=== PATIENT | female | born 1975 | race Caucasian/White ===

== ENCOUNTER → 2016-04-30 | Outpatient (CLI) | payer OTHER, SELFPAY ==
[~2016-04-30] MED LIST: ACET PO; ACETGRA; BACL10TA2 PO; CYMB60CA3 PO; FLEXERIL PO; GABA300C2 PO; OXYC1CON PO; PERC7.5T12 PO; ROBA750T OR; SOMA350T PO; TRAM50TA2 PO; ULTR50TA PO; VICO5TAB OR; VICO5TAB PO; combination cream PO; cymbalta PO; flexeril PO
--- NOTE | 2016-05-07 23:47 | ECWPNPC ---
PATIENT NAME: RONY BOYLE : 1975 GENDER: FEMALE VISIT DATE: 04/30/2016 DISCHARGE DATE: 04/30/16 1551 VISIT LOCKED DATE TIME: PHYSICIAN: ALISSA VILLANUEVA RESOURCE: ALISSA VILLANUEVA REASON FOR APPOINTMENT 1. BACK/NECK HISTORY OF PRESENT ILLNESS HISTORY OF PRESENT ILLNESS: HERE FOR F/U AND MANAGEMENT OF CHRONIC LBP.HX OF LUMBAR SURGERY OCTOBER 2015.HAS HAD INCREASE IN PAIN LATELY DUE TO LONG TRAVEL AND SITTING.RATING PAIN VAS 8/10.LAST VISIT WAS 04-23-16.AT THAT VISIT PATIENT DID NOT BRING IN OXYCODONE 15MG TAB PER CLINIC POLICY.STATES SHE FORGOT IT AT HOME.STATES SHE HAD A DOSE THIS AM.STATES SHE HAS TO BE OUT OF TOWN FOR FAMILY MEDICAL EMERGENCY.STATES SHE HAS 5 TABLETS AT HOME. INFORMED HER THAT SHE IS NOT DUE UNTIL .STATES SHE WAS TOLD BY DR. BLANCHARD THAT SHE HAD TO CUT DOWN TO ONE PER DAY LAST 5 DAYS OF 30 DAY SUPPLY SO SHE WOULD NOT RUN OUT SO SHE SHOULD BE OK.I TOLD HER THAT SHE WAS GIVEN INSTRUCTION FROM BOTH MYSELF AND DR. BLANCHARD AT HER 04-01-16 VISIT THAT 100 TABLETS WOULD BE A THIRTY DAY SUPPLY AND SHE WOULD HAVE TO USE IT SPARINGLY FOR SEVERE PAIN EPIODES (IE SOME DAYS 2 TABLETS SOMEDAYS 3 TABLETS SOMEDAYS NONE )URINE TOX. OBTAINED AT 04-23-16 VISIT REVIEWED SHOWING MULTIPLE DESCREPENCIES.FIRST THERE WAS NO OXYCODONE IN HER URINE AND A LARGE QUANITY >100,000MEQ TRAMADOL.WHEN DR. BLANCHARD QUESTIONED HER ON USE OF TRAMADOL SHE STATES THAT SHE STARTED TAKING TRAMADOL APROXIMATLEY ONE WEEK AGO BUT ONLY A FEW TABLETS PER DAY.ISTOP REVIEWED DOES NOT SHOW ANY EVIDENCE OF TRAMADOL PRESCRIBED.WHEN ASKED WHERE SHE GOT TRAMADOL SHE STATES IT WAS AN OLD PRESCRIPTION PRESCRIBED BY JORGITO MEDRANO A PROVIDER HERE.SHE WAS A PATIENT OF [facility] JOEL 2 YEARS AGO AND WAS RECIEVING TRAMADOL. FALL RISK SCREENING: SCREENING :NO FALLS IN THE PAST YEAR CURRENT MEDICATIONS TAKING TYLENOL EX ST ARTHRITIS PAIN 500 MG TABLET 1 TABLET NEEDED ORALLY EVERY 6 HRS TAKING CYMBALTA 60 MG CAPSULE DELAYED RELEASE PARTICLES 1 CAPSULE ORALLY ONCE A DAY FOR PAIN TAKING TIZANIDINE HCL 4 MG TABLET 1 TABLET NEEDED ORALLY EVERY 6 HRS AT NIGHT FOR SPASMS AND PAIN MDD2 TAKING CYMBALTA 30 MG CAPSULE DELAYED RELEASE PARTICLES 1 CAPSULE ORALLY IN AM DAILY TAKING OXYCODONE HCL 15 MG TABLET 1 TABLET NEEDED ORALLY EVERY 6 HRS PRN MDD4 NOT-TAKING IBUPROFEN 800 MG TABLET 1 TAB ORALLY WITH FOOD EVERY 6 HRS PRN FOR PAIN MDD3 NOT-TAKING OXYCODONE HCL 10 MG TABLET 1 TABLET NEEDED ORALLY EVERY 8 HRS MDD2 NOT-TAKING MOTRIN 800 MG TABLET ORALLY EVERY 6 HRS NOT-TAKING KETOROLAC TROMETHAMINE 10 MG TABLET 1 TABLET NEEDED ORALLY WITH FOOD EVERY 8 HRS MDD2 NOT-TAKING MOBIC 15 MG TABLET 1 TABLET ORALLY ONCE A DAY MEDICATION LIST REVIEWED AND RECONCILED WITH THE PATIENT PAST MEDICAL HISTORY DDD, LUMBAR, CHR BACK PAIN NECK PAIN 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 SOCIAL HISTORY TOBACCO USE ARE YOU A:CURRENT SMOKER PATIENT COUNSELED ON THE DANGERS OF TOBACCO USE AND URGED TO QUIT:04/30/2016 ARE YOU INTERESTED IN QUITTING?READY TO QUIT COUNSELED THE PATIENT ON TOBACCO USE, CESSATION [id number]/05/2017 LEARNING BARRIERS / SPECIAL NEEDS ORIENTED TO PLAN OF CARE:PATIENT PAIN MANAGEMENTPATIENT NEW PATIENT PAIN DIARY TODAY'S VISITNOTES FROM 0-10, WHAT LEVEL IS YOUR PAIN TODAY?0 PAIN CLINIC PFS, CLERGY, PUBLIC HEALTH REFERRALS PFS REFERRAL NEEDED?NO CLERGY REFERRAL NEEDED?NO PUBLIC HEALTH REFERRAL NEEDED?NO WAS THE PROVIDER NOTIFIED OF ANY PERTINENT INFO?NO PFS REFERRAL NEEDED?NO CLERGY REFERRAL NEEDED?NO PUBLIC HEALTH REFERRAL NEEDED?NO WAS THE PROVIDER NOTIFIED OF ANY PERTINENT INFO?NO PFS REFERRAL NEEDED?NO CLERGY REFERRAL NEEDED?NO PUBLIC HEALTH REFERRAL NEEDED?NO WAS THE PROVIDER NOTIFIED OF ANY PERTINENT INFO?NO REVIEW OF SYSTEMS CONSTITUTIONAL: ANY CHANGE IN YOUR MEDICAL CONDITION? NO . CHILLS NO . FEVER NO . INFECTION: DO YOU HAVE NEW INFECTIONS? NO . DO YOU HAVE HISTORY OF MRSA? NO . MUSCULOSKELETAL: ANY NEW PATTERNS OF PAIN OR NUMBNESS? NO . GASTROENTEROLOGY: ANY NEW CHANGE IN BOWEL CONTROL? NO . GENITOURINARY: ANY NEW CHANGE IN BLADDER CONTROL? NO . IS THERE A CHANCE YOU COULD BE ? NO . HEMATOLOGY/LYMPH: DO YOU TAKE ANY BLOOD THINNERS? (FOR EXAMPLE- COUMADIN, PLAVIX, AGGRENOX, PLATEL, PRADAXA, OR XARELTO) NO . WHEN WAS YOUR LAST DOSE? DATE: TIME: . NEUROLOGY: HAVE YOU FALLEN IN THE PAST 6 MONTHS? NO . ANY NEW EXTREMITY NUMBNESS OR WEAKNESS? NO . CARDIOLOGY: DO YOU HAVE A PACEMAKER OR DEFIBRILLATOR? NO . RESPIRATORY: HAVE YOU BEEN SICK IN THE PAST WEEK? NO . FEVER NO . FLU LIKE SYMPTOMS? NO . COUGH NO . INTEGUMENTARY: DO YOU HAVE ANY RASHES OR OPEN SORES? NO . ALLERGIC/IMMUNO: ARE YOU ALLERGIC TO SHELLFISH OR IV DYE? NO . ANY NEW ALLERGIES? NO . PSYCHIATRIC: DO YOU HAVE THOUGHTS OF HURTING YOURSELF OR SOMEONE ELSE? NO . ARE YOU ABUSED, NEGLECTED, OR IN AN UNSAFE ENVIRONMENT? NO . ENDOCRINOLOGY: ARE YOU DIABETIC? NO . OTHER: DO YOU NEED ANY PRESCRIPTIONS? YES . IF YES, PLEASE LIST: ____OXYCODONE 15 MG . ANY NEW PROBLEMS WITH YOUR MEDICATIONS? NO . WHEN DID YOU LAST EAT? ____ . WHEN DID YOU LAST DRINK? ____ . WHAT DID YOU LAST DRINK? ____ . NAME OF PERSON DRIVING YOU HOME? ____ . DO YOU HAVE ANY OTHER QUESTIONS OR CONCERNS NO . REVIEWED BY: PROVIDER: ALISSA WYNNE . VITAL SIGNS WT 220 LBS, HT 68 IN, BMI 33.45 INDEX, BP 142/99 MM HG, HR 92 /MIN, RR 16 /MIN, TEMP 98.9 F, OXYGEN SAT % 94%, NA INITIALS SC 13:33, REVIEWED BY: VD. EXAMINATION GENERAL EXAMINATION: LUNGS:LUNG SOUNDS ARE CLEAR. HEART:HEART RATE REGULAR. MUSCULOSKELETAL:*, MUSCLE STRENGTH TESTING 5/5 BILATERAL, PALPATION: POSITIVE FOR PAIN OVER L/S SPINE. POSITIVE FOR PAIN OVER L/S PARSPINALS. DIAGNOSTIC: . ASSESSMENTS POSTLAMINECTOMY SYNDROME, NOT ELSEWHERE CLASSIFIED - M96.1 (PRIMARY) CERVICAL DISC DISORDER WITH RADICULOPATHY, HIGH CERVICAL REGION - M50.11 MID-CERVICAL DISC DISORDER, UNSPECIFIED - M50.120 CERVICAL DISC DISORDER WITH RADICULOPATHY, CERVICOTHORACIC REGION - M50.13 TREATMENT POSTLAMINECTOMY SYNDROME, NOT ELSEWHERE CLASSIFIED CONTINUE CYMBALTA CAPSULE DELAYED RELEASE PARTICLES, 60 MG, 1 CAPSULE, ORALLY, ONCE A DAY FOR PAIN CONTINUE TIZANIDINE HCL TABLET, 4 MG, 1 TABLET NEEDED, ORALLY, EVERY 6 HRS AT NIGHT FOR SPASMS AND PAIN MDD2 CONTINUE CYMBALTA CAPSULE DELAYED RELEASE PARTICLES, 30 MG, 1 CAPSULE, ORALLY, IN AM DAILY REFILL OXYCODONE HCL TABLET, 15 MG, 1, ORALLY, Q8H PRN MDD3, 30 DAY(S), 90, REFILLS 0 NOTES: CLINIC GUIDELINES /POLICY FOR NARCOTIC USE REVIEWED W PATIENT BY ALISSA WYNNE AND DR. BLANCHARD.NARCOTIC AGREEMENT REVIEWED AND PATIENT WAS GIVEN COPY TO TAKE HOME., ISTOP REGISTRY REVIEWED AND DEMNOSTRATES COMPLLIANCE. BRINGS IN MEDICATIONS WHICH IS APPROPRIATE FOR WHAT WAS DISPENSED. RECENT URINE TOXICOLOGY REVIEWED. NO UNAUTHORIZED MEDICATIONS. NO ILLICIT SUBSTANCES AND PRESCRIBED MEDICATIONS WERE PRESENT. , RISKS AND BENEFITS OF NARCOTIC/OPIOD MEDICATIONS WERE REVIEWED WITH PATIENT - THIS INCLUDES BUT IS NOT LIMITED TO RISK OF DEPENDANCE/DEVELOPMENT OF ADDICTION, MOOD DISTURBANCE AND DEPRESSION, OSTEOPOROSIS, HORMONAL AND LABIDAL CHANGES, RESPIRATORY DEPRESSION AND . PATIENT IS ADVISED NOT TO DRIVE WHILE ON THESE MEDICATIONS.URINE TOX. TODAY.INSTRUCTED TO BRING #5 TABLETS OF TRAMADOL THAT SHE SAYS SHE HAS AT HOME IN TO F/U AT NEXT VISIT. PROCEDURE CODES FA211 ESTABILISHED PATIENT [facility] CHARGE FOLLOW UP [address] BLANCHARD HERE ELECTRONICALLY SIGNED BY RICCI KOLB ON 05/07/2016 AT 04:52 PM EST DISCLAIMER : THIS IS A VISIT SUMMARY EXTRACTED FROM THE [employer] CHART. IT IS NOT A COPY OF THE [employer] PROGRESS NOTE. ARMAND
== END ==
LOC: M PAIN 15:20
PROVIDERS: ATTEND Nurse Practitioner Family
DX: M96.1 Postlaminectomy syndrome, not elsewhere classified (principal); M50.11 Cervical disc disorder with radiculopathy, high cervical region; M50.120 Mid-cervical disc disorder, unspecified level; M50.13 Cervical disc disorder with radiculopathy, cervicothoracic region; M54.5 Low back pain; G89.29 Other chronic pain; Z79.891 Long term (current) use of opiate analgesic; Z79.899 Other long term (current) drug therapy; F17.200 Nicotine dependence, unspecified, uncomplicated

== ENCOUNTER → 2016-08-31 | Outpatient (CLI) | payer OTHER ==
--- NOTE | 2016-08-31 23:52 | ECWPNPC ---
PATIENT NAME: RONY BOYLE : 1975 GENDER: FEMALE VISIT DATE: 08/31/2016 DISCHARGE DATE: 08/31/16 1613 VISIT LOCKED DATE TIME: PHYSICIAN: ALISSA VILLANUEVA RESOURCE: ALISSA VILLANUEVA REASON FOR APPOINTMENT 1. NECK/BACK. HISTORY OF PRESENT ILLNESS HISTORY OF PRESENT ILLNESS: HER FOR F/U OF CHRONIC LOW BACK PAIN,LAST VISIT IN APRIL.AT LAST VISIT WE DISCUSSED NEED FOR MONTHLY VISITS AND COMPLIANCE WITH NARCOTIC AGREEMENT.SINCE THAT VISIT SHE HAS HAD 4 NO SHOW APPOINTMENTS.SHE HAS BEEN REQUESTING MEDICATION REFILLS EARLY.TODAY AFTER TELLING HER OF MY CONCERNS REGARDING NARCOTIC USE SHE STARTED TO TELL ME HOW SHE HAS TO COME OFF THIS STUFF.ADMITS TO CHEWING FOUR OXYCODONE PILLS 3-4X PER DAY AND OFTEN TIMES PURCHASING OPIATES OFF THE STREET.STATES SHE TRIED TO SNORT MEDICATION BUT IT CAUSED TOO MUCH NASAL IRRITATION.STATES SHE HAS BEEN ABUSING OPIODS FOR 15 YEARS.HER HAS BEEN PLEADING FOR HER TO QUIT.SHE STATES SHE IS READY. PAIN THE PATIENT DESCRIBES THE PAIN... FALL RISK SCREENING: SCREENING :NO FALLS IN THE PAST YEAR CURRENT MEDICATIONS TAKING CYMBALTA 60 MG CAPSULE DELAYED RELEASE PARTICLES 1 CAPSULE ORALLY ONCE A DAY FOR PAIN, TAKING TIZANIDINE HCL 4 MG TABLET 1 TABLET NEEDED ORALLY EVERY 6 HRS AT NIGHT FOR SPASMS AND PAIN MDD2, TAKING CYMBALTA 30 MG CAPSULE DELAYED RELEASE PARTICLES 1 CAPSULE ORALLY IN AM DAILY, TAKING TYLENOL EX ST ARTHRITIS PAIN 500 MG TABLET 1 TABLET NEEDED ORALLY EVERY 6 HRS, TAKING OXYCODONE HCL 15 MG TABLET 1 ORALLY Q8H PRN MDD3, NOT-TAKING IBUPROFEN 800 MG TABLET 1 TAB ORALLY WITH FOOD EVERY 6 HRS PRN FOR PAIN MDD3, NOT-TAKING OXYCODONE HCL 10 MG TABLET 1 TABLET NEEDED ORALLY EVERY 8 HRS MDD2, NOT-TAKING MOTRIN 800 MG TABLET ORALLY EVERY 6 HRS, NOT-TAKING KETOROLAC TROMETHAMINE 10 MG TABLET 1 TABLET NEEDED ORALLY WITH FOOD EVERY 8 HRS MDD2, NOT-TAKING MOBIC 15 MG TABLET 1 TABLET ORALLY ONCE A DAY, MEDICATION LIST REVIEWED AND RECONCILED WITH THE PATIENT PAST MEDICAL HISTORY DDD, LUMBAR, CHR BACK PAIN, NECK PAIN, CHR R HIP PAIN, RIGHT HIP WITH CONGENITAL DEFECT UNDETECTED PRIOR TO CURRENT 2016 SURGURY. ALLERGIES N.K.D.A. SOCIAL HISTORY GENERAL: TOBACCO USE ARE YOU A:CURRENT SMOKER HOW MANY CIGARETTES A DAY DO YOU SMOKE?6-10 HOW SOON AFTER YOU WAKE UP DO YOU SMOKE YOUR FIRST CIGARETTE?6-30 MIN HOW OFTEN DO YOU SMOKE CIGARETTES?EVERY DAY PATIENT COUNSELED ON THE DANGERS OF TOBACCO USE AND URGED TO QUIT:08/31/2016 ARE YOU INTERESTED IN QUITTING?THINKING ABOUT QUITTING HAS CUT BACK TO 04/27 PPD COUNSELED THE PATIENT ON SMOKING CESSATION, EDUCATION [id number]/08/2017 LEARNING BARRIERS / SPECIAL NEEDS ORIENTED TO PLAN OF CARE: PATIENT, PAIN MANAGEMENT PATIENT, ORIENTED TO PLAN OF CARE: PATIENT, PAIN MANAGEMENT PATIENT, ORIENTED TO PLAN OF CARE: PATIENT, PAIN MANAGEMENT PATIENT. NEW PATIENT PAIN DIARY TODAY'S VISITNOTES FROM 0-10, WHAT LEVEL IS YOUR PAIN TODAY?0 PAIN CLINIC PFS, CLERGY, PUBLIC HEALTH REFERRALS PFS REFERRAL NEEDED?NO CLERGY REFERRAL NEEDED?NO PUBLIC HEALTH REFERRAL NEEDED?NO WAS THE PROVIDER NOTIFIED OF ANY PERTINENT INFO?NO PFS REFERRAL NEEDED?NO CLERGY REFERRAL NEEDED?NO PUBLIC HEALTH REFERRAL NEEDED?NO WAS THE PROVIDER NOTIFIED OF ANY PERTINENT INFO?NO PFS REFERRAL NEEDED?NO CLERGY REFERRAL NEEDED?NO PUBLIC HEALTH REFERRAL NEEDED?NO WAS THE PROVIDER NOTIFIED OF ANY PERTINENT INFO?NO REVIEW OF SYSTEMS CONSTITUTIONAL: ANY CHANGE IN YOUR MEDICAL CONDITION? NO . CHILLS NO . FEVER NO . INFECTION: DO YOU HAVE NEW INFECTIONS? NO . DO YOU HAVE HISTORY OF MRSA? NO . MUSCULOSKELETAL: ANY NEW PATTERNS OF PAIN OR NUMBNESS? YES, PAIN RIGHT KNEE X 3 WEEKS WITH FLUID ON IT . GASTROENTEROLOGY: ANY NEW CHANGE IN BOWEL CONTROL? NO . GENITOURINARY: ANY NEW CHANGE IN BLADDER CONTROL? NO . IS THERE A CHANCE YOU COULD BE ? NO . HEMATOLOGY/LYMPH: DO YOU TAKE ANY BLOOD THINNERS? (FOR EXAMPLE- COUMADIN, PLAVIX, AGGRENOX, PLATEL, PRADAXA, OR XARELTO) NO . WHEN WAS YOUR LAST DOSE? DATE: TIME: . NEUROLOGY: HAVE YOU FALLEN IN THE PAST 6 MONTHS? NO . ANY NEW EXTREMITY NUMBNESS OR WEAKNESS? NO . CARDIOLOGY: DO YOU HAVE A PACEMAKER OR DEFIBRILLATOR? NO . RESPIRATORY: HAVE YOU BEEN SICK IN THE PAST WEEK? NO . FEVER NO . FLU LIKE SYMPTOMS? NO . COUGH NO . INTEGUMENTARY: DO YOU HAVE ANY RASHES OR OPEN SORES? NO . ALLERGIC/IMMUNO: ARE YOU ALLERGIC TO SHELLFISH OR IV DYE? NO . ANY NEW ALLERGIES? NO . PSYCHIATRIC: DO YOU HAVE THOUGHTS OF HURTING YOURSELF OR SOMEONE ELSE? NO . ARE YOU ABUSED, NEGLECTED, OR IN AN UNSAFE ENVIRONMENT? NO . ENDOCRINOLOGY: ARE YOU DIABETIC? NO . OTHER: DO YOU NEED ANY PRESCRIPTIONS? YES . IF YES, PLEASE LIST: CYMBALTA AND OXYCODONE . ANY NEW PROBLEMS WITH YOUR MEDICATIONS? NO . WHEN DID YOU LAST EAT? ____ . WHEN DID YOU LAST DRINK? ____ . WHAT DID YOU LAST DRINK? ____ . NAME OF PERSON DRIVING YOU HOME? ____ . DO YOU HAVE ANY OTHER QUESTIONS OR CONCERNS NO . REVIEWED BY: PROVIDER: ALISSA WYNNE . VITAL SIGNS WT 220.0 LBS, HT 68 IN, BMI 33.45 INDEX, BP 173/98 MM HG, HR 100 /MIN, RR 16 /MIN, TEMP 98.4 F, OXYGEN SAT % 99%, NA INITIALS TL 1410, REVIEWED BY: WESTLEY BP 173/98, RN A.DKatie AWARE- TLL. RICH TROTTER AWARE OF B/P READING. PT. STATES SHE THINKS IT IS DUE TO HER PAIN. AD. 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 (PRIMARY) POSTLAMINECTOMY SYNDROME, NOT ELSEWHERE CLASSIFIED - M96.1 TREATMENT OPIOID DEPENDENCE WITH OPIOID-INDUCED DISORDER REFILL CYMBALTA CAPSULE DELAYED RELEASE PARTICLES, 60 MG, 1 CAPSULE, ORALLY, ONCE A DAY FOR PAIN, 30 DAY(S), 30, REFILLS 0 REFILL CYMBALTA CAPSULE DELAYED RELEASE PARTICLES, 30 MG, 1 CAPSULE, ORALLY, IN AM DAILY, 30 DAY(S), 30, REFILLS 0 REFILL OXYCODONE HCL TABLET, 15 MG, 3, ORALLY, Q8H TID MDD9, 10 DAYS, 90, REFILLS 0 START CLONIDINE HCL PATCH WEEKLY, 0.1 MG/24HR, 1 PATCH TO SKIN, TRANSDERMAL, EVERY 7 DAYS, 30 DAY(S), 4, REFILLS 0 NOTES: TAKE 3 TAB OXYCODONE AT 8AM,2PM AND 8PMCLONIDINE PATCH -ONE PATCH EVERY SEVEN DAYS. PROCEDURE CODES FA211 ESTABILISHED PATIENT [facility] CHARGE DISPOSITION & COMMUNICATION FOLLOW UP SQUEEZE IN END OF DAY 7-10 DAYS F/U ELECTRONICALLY SIGNED BY JAMI ESCAMILLA ON 08/31/2016 AT 04:34 PM EDT DISCLAIMER : THIS IS A VISIT SUMMARY EXTRACTED FROM THE [employer] CHART. IT IS NOT A COPY OF THE [employer] PROGRESS NOTE. DEOND
== END ==
LOC: M PAIN 14:40
PROVIDERS: ATTEND Nurse Practitioner Family
DX: G89.29 Other chronic pain (principal); F11.29 Opioid dependence with unspecified opioid-induced disorder; M96.1 Postlaminectomy syndrome, not elsewhere classified; F17.210 Nicotine dependence, cigarettes, uncomplicated; Z79.899 Other long term (current) drug therapy

== ENCOUNTER → 2016-09-08 | Outpatient (CLI) | payer OTHER ==
--- NOTE | 2016-09-29 01:11 | ECWPNPC ---
PATIENT NAME: RONY BOYLE : 1975 GENDER: FEMALE VISIT DATE: 09/08/2016 DISCHARGE DATE: 09/08/16 1432 VISIT LOCKED DATE TIME: PHYSICIAN: ALISSA VILLANUEVA RESOURCE: ALISSA VILLANUEVA REASON FOR APPOINTMENT 1. NEEDS 40 MIN HISTORY OF PRESENT ILLNESS HISTORY OF PRESENT ILLNESS: HERE FOR 2 WEEK MEDICATION MANAGEMENT VISIT.SHE IS IN WEANING PROCESS WITH NARCOTIC PAIN MEDICATION.ACCOMPANIED IN EXAM ROOM WITH HER DAUGHTER.OVERALL DOING WELL WITH REDUCTION OF OXYCODONE.RATING PAIN VAS 7/10.STATES CLONIDINE IS HELPFUL.DISCUSSED WEANING DOWN OF OXYCODONE AND USE OF CLONIDINE. PAIN THE PATIENT DESCRIBES THE PAIN... FALL RISK SCREENING: SCREENING :NO FALLS IN THE PAST YEAR CURRENT MEDICATIONS TAKING TIZANIDINE HCL 4 MG TABLET 1 TABLET NEEDED ORALLY EVERY 6 HRS AT NIGHT FOR SPASMS AND PAIN MDD2 TAKING TYLENOL EX ST ARTHRITIS PAIN 500 MG TABLET 1 TABLET NEEDED ORALLY EVERY 6 HRS TAKING CYMBALTA 60 MG CAPSULE DELAYED RELEASE PARTICLES 1 CAPSULE ORALLY ONCE A DAY FOR PAIN TAKING CYMBALTA 30 MG CAPSULE DELAYED RELEASE PARTICLES 1 CAPSULE ORALLY IN AM DAILY TAKING OXYCODONE HCL 15 MG TABLET 3 ORALLY Q8H TID MDD9 TAKING CLONIDINE HCL 0.1 MG/24HR PATCH WEEKLY 1 PATCH TO SKIN TRANSDERMAL EVERY 7 DAYS NOT-TAKING IBUPROFEN 800 MG TABLET 1 TAB ORALLY WITH FOOD EVERY 6 HRS PRN FOR PAIN MDD3 NOT-TAKING OXYCODONE HCL 10 MG TABLET 1 TABLET NEEDED ORALLY EVERY 8 HRS MDD2 NOT-TAKING MOTRIN 800 MG TABLET ORALLY EVERY 6 HRS NOT-TAKING KETOROLAC TROMETHAMINE 10 MG TABLET 1 TABLET NEEDED ORALLY WITH FOOD EVERY 8 HRS MDD2 NOT-TAKING MOBIC 15 MG TABLET 1 TABLET ORALLY ONCE A DAY MEDICATION LIST REVIEWED AND RECONCILED WITH THE PATIENT PAST MEDICAL HISTORY DDD, LUMBAR, CHR BACK PAIN NECK PAIN 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 SURGICAL HISTORY C SPINE - FUSION 2012 TOOTH EXTRACTION 2016 CHOLECYSTECTOMY 2011 APPENDECTOMY 1993 LEEP PROCEDURE 2001 TUBAL LIGATION 2000 RODS, PLATES, PINS, SCREWS TO LOWER LUMBAR BY DR RODRÍGUEZ IN [place] 2016 HOSPITALIZATION/MAJOR DIAGNOSTIC PROCEDURE C SPINE FUSION 2011 CHOLECYSTECTOMY 2011 APPENDECTOMY 1993 CHILD 1998, 1999, 2000 REVIEW OF SYSTEMS CONSTITUTIONAL: ANY CHANGE IN YOUR MEDICAL CONDITION? NO . CHILLS NO . FEVER NO . INFECTION: DO YOU HAVE NEW INFECTIONS? NO . DO YOU HAVE HISTORY OF MRSA? NO . MUSCULOSKELETAL: ANY NEW PATTERNS OF PAIN OR NUMBNESS? NO . GASTROENTEROLOGY: ANY NEW CHANGE IN BOWEL CONTROL? NO . GENITOURINARY: ANY NEW CHANGE IN BLADDER CONTROL? NO . IS THERE A CHANCE YOU COULD BE ? NO . HEMATOLOGY/LYMPH: DO YOU TAKE ANY BLOOD THINNERS? (FOR EXAMPLE- COUMADIN, PLAVIX, AGGRENOX, PLATEL, PRADAXA, OR XARELTO) NO . WHEN WAS YOUR LAST DOSE? DATE: TIME: . NEUROLOGY: HAVE YOU FALLEN IN THE PAST 6 MONTHS? NO . ANY NEW EXTREMITY NUMBNESS OR WEAKNESS? NO . CARDIOLOGY: DO YOU HAVE A PACEMAKER OR DEFIBRILLATOR? NO . RESPIRATORY: HAVE YOU BEEN SICK IN THE PAST WEEK? NO . FEVER NO . FLU LIKE SYMPTOMS? NO . COUGH NO . INTEGUMENTARY: DO YOU HAVE ANY RASHES OR OPEN SORES? NO . ALLERGIC/IMMUNO: ARE YOU ALLERGIC TO SHELLFISH OR IV DYE? NO . ANY NEW ALLERGIES? NO . PSYCHIATRIC: DO YOU HAVE THOUGHTS OF HURTING YOURSELF OR SOMEONE ELSE? NO . ARE YOU ABUSED, NEGLECTED, OR IN AN UNSAFE ENVIRONMENT? NO . ENDOCRINOLOGY: ARE YOU DIABETIC? NO . OTHER: DO YOU NEED ANY PRESCRIPTIONS? YES. TO DISCUSS WITH Casie VILLANUEVA . IF YES, PLEASE LIST: ____ . ANY NEW PROBLEMS WITH YOUR MEDICATIONS? NO . WHEN DID YOU LAST EAT? ____ . WHEN DID YOU LAST DRINK? ____ . WHAT DID YOU LAST DRINK? ____ . NAME OF PERSON DRIVING YOU HOME? ____ . DO YOU HAVE ANY OTHER QUESTIONS OR CONCERNS NO . REVIEWED BY: PROVIDER: ALISSA WYNNE . VITAL SIGNS WT 220.0 LBS, HT 68 IN, BMI 33.45 INDEX, BP 139/93 MM HG, HR 82 /MIN, RR 16 /MIN, TEMP 97.7 F, OXYGEN SAT % 98%, SAFE IN ENV? (Y/N) Y, NA INITIALS TL 1339, REVIEWED BY: EM. EXAMINATION GENERAL EXAMINATION: LUNGS:LUNG SOUNDS ARE CLEAR. HEART:HEART RATE REGULAR. MUSCULOSKELETAL:*, MUSCLE STRENGTH TESTING 5/5 BILATERAL, PALPATION: POSITIVE FOR PAIN OVER L/S SPINE. POSITIVE FOR PAIN OVER L/S PARASPINALS. DIAGNOSTIC: . 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 AM,12NOON AND TWO TAB. AT HS. PROCEDURE CODES FA211 ESTABILISHED PATIENT [facility] CHARGE DISPOSITION & COMMUNICATION FOLLOW UP 8-10 DAY SQUEEZE IN F/U ELECTRONICALLY SIGNED BY RICCI KOLB ON 09/28/2016 AT 07:22 PM EDT DISCLAIMER : THIS IS A VISIT SUMMARY EXTRACTED FROM THE [employer] CHART. IT IS NOT A COPY OF THE [employer] PROGRESS NOTE. ARMAND
== END ==
LOC: M PAIN 13:20
PROVIDERS: ATTEND Nurse Practitioner Family
DX: M96.1 Postlaminectomy syndrome, not elsewhere classified (principal); F11.29 Opioid dependence with unspecified opioid-induced disorder; F17.210 Nicotine dependence, cigarettes, uncomplicated; E66.01 Morbid (severe) obesity due to excess calories; Z68.33 Body mass index [BMI] 33.0-33.9, adult; Z79.899 Other long term (current) drug therapy

== ENCOUNTER → 2016-09-18 | Outpatient (CLI) | payer OTHER ==
--- NOTE | 2016-10-13 02:31 | ECWPNPC ---
PATIENT NAME: RONY BOYLE : 1975 GENDER: FEMALE VISIT DATE: 09/18/2016 DISCHARGE DATE: 09/18/16 1111 VISIT LOCKED DATE TIME: PHYSICIAN: ALISSA VILLANUEVA RESOURCE: ALISSA VILLANUEVA REASON FOR APPOINTMENT 1. NECK/BACK HISTORY OF PRESENT ILLNESS HISTORY OF PRESENT ILLNESS: HERE FOR TWO WEEK F/U AND MANGEMENT OF OPIOD REDUCTION PLAN.DOING WELL.RATING PAIN A 7/10.HAS NOT HAD ANY DISABLING WITHDRAWAL SYMPTOMS.USING CLONIDINE APROXIMATLEY 2 TAB PER DAY. PAIN THE PATIENT DESCRIBES THE PAIN... FALL RISK SCREENING: SCREENING :NO FALLS IN THE PAST YEAR CURRENT MEDICATIONS TAKING TIZANIDINE HCL 4 MG TABLET 1 TABLET NEEDED ORALLY EVERY 6 HRS AT NIGHT FOR SPASMS AND PAIN MDD2 TAKING TYLENOL EX ST ARTHRITIS PAIN 500 MG TABLET 1 TABLET NEEDED ORALLY EVERY 6 HRS TAKING CLONIDINE HCL 0.1 MG TABLET 1 TABLET AT BEDTIME ORALLY Q8H PRN TAKING OXYCODONE HCL 15 MG TABLET 3 ORALLY 3 IN AM,3 AT 12 NOON AND TWO AT 8PM MDD 8 TAKING CYMBALTA 60 MG CAPSULE DELAYED RELEASE PARTICLES 1 CAPSULE ORALLY ONCE A DAY FOR PAIN TAKING CYMBALTA 30 MG CAPSULE DELAYED RELEASE PARTICLES 1 CAPSULE ORALLY IN AM DAILY NOT-TAKING CLONIDINE HCL 0.1 MG/24HR PATCH WEEKLY 1 PATCH TO SKIN TRANSDERMAL EVERY 7 DAYS NOT-TAKING IBUPROFEN 800 MG TABLET 1 TAB ORALLY WITH FOOD EVERY 6 HRS PRN FOR PAIN MDD3 NOT-TAKING OXYCODONE HCL 10 MG TABLET 1 TABLET NEEDED ORALLY EVERY 8 HRS MDD2 NOT-TAKING MOTRIN 800 MG TABLET ORALLY EVERY 6 HRS NOT-TAKING KETOROLAC TROMETHAMINE 10 MG TABLET 1 TABLET NEEDED ORALLY WITH FOOD EVERY 8 HRS MDD2 NOT-TAKING MOBIC 15 MG TABLET 1 TABLET ORALLY ONCE A DAY MEDICATION LIST REVIEWED AND RECONCILED WITH THE PATIENT PAST MEDICAL HISTORY DDD, LUMBAR, CHR BACK PAIN NECK PAIN 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 SURGICAL HISTORY C SPINE - FUSION 2012 TOOTH EXTRACTION 2016 CHOLECYSTECTOMY 2011 APPENDECTOMY 1993 LEEP PROCEDURE 2001 TUBAL LIGATION 2000 RODS, PLATES, PINS, SCREWS TO LOWER LUMBAR BY DR RODRÍGUEZ IN [place] 2016 HOSPITALIZATION/MAJOR DIAGNOSTIC PROCEDURE C SPINE FUSION 2011 CHOLECYSTECTOMY 2011 APPENDECTOMY 1993 CHILD 1998, 1999, 2000 REVIEW OF SYSTEMS CONSTITUTIONAL: ANY CHANGE IN YOUR MEDICAL CONDITION? NO . CHILLS NO . FEVER NO . INFECTION: DO YOU HAVE NEW INFECTIONS? NO . DO YOU HAVE HISTORY OF MRSA? NO . MUSCULOSKELETAL: ANY NEW PATTERNS OF PAIN OR NUMBNESS? NO . GASTROENTEROLOGY: ANY NEW CHANGE IN BOWEL CONTROL? NO . GENITOURINARY: ANY NEW CHANGE IN BLADDER CONTROL? NO . IS THERE A CHANCE YOU COULD BE ? NO . HEMATOLOGY/LYMPH: DO YOU TAKE ANY BLOOD THINNERS? (FOR EXAMPLE- COUMADIN, PLAVIX, AGGRENOX, PLATEL, PRADAXA, OR XARELTO) NO . WHEN WAS YOUR LAST DOSE? DATE: TIME: . NEUROLOGY: HAVE YOU FALLEN IN THE PAST 6 MONTHS? NO . ANY NEW EXTREMITY NUMBNESS OR WEAKNESS? NO . CARDIOLOGY: DO YOU HAVE A PACEMAKER OR DEFIBRILLATOR? NO . RESPIRATORY: HAVE YOU BEEN SICK IN THE PAST WEEK? NO . FEVER NO . FLU LIKE SYMPTOMS? NO . COUGH NO . INTEGUMENTARY: DO YOU HAVE ANY RASHES OR OPEN SORES? NO . ALLERGIC/IMMUNO: ARE YOU ALLERGIC TO SHELLFISH OR IV DYE? NO . ANY NEW ALLERGIES? NO . PSYCHIATRIC: DO YOU HAVE THOUGHTS OF HURTING YOURSELF OR SOMEONE ELSE? NO . ARE YOU ABUSED, NEGLECTED, OR IN AN UNSAFE ENVIRONMENT? NO . ENDOCRINOLOGY: ARE YOU DIABETIC? NO . OTHER: DO YOU NEED ANY PRESCRIPTIONS? YES, OXYCODONE . IF YES, PLEASE LIST: ____ . ANY NEW PROBLEMS WITH YOUR MEDICATIONS? NO . WHEN DID YOU LAST EAT? ____ . WHEN DID YOU LAST DRINK? ____ . WHAT DID YOU LAST DRINK? ____ . NAME OF PERSON DRIVING YOU HOME? ____ . DO YOU HAVE ANY OTHER QUESTIONS OR CONCERNS NO . REVIEWED BY: PROVIDER: ALISSA WYNNE . VITAL SIGNS WT 224 LBS, HT 68 IN, BMI 34.06 INDEX, BP 137/82 MM HG, HR 80 /MIN, RR 16 /MIN, TEMP 97.5 F, OXYGEN SAT % 98%, SAFE IN ENV? (Y/N) Y, NA INITIALS [place] 10:48, REVIEWED BY: EM. EXAMINATION GENERAL EXAMINATION: LUNGS:LUNG SOUNDS ARE CLEAR. HEART:HEART RATE REGULAR. MUSCULOSKELETAL:*, MUSCLE STRENGTH TESTING 5/5 BILATERAL, PALPATION: POSITIVE FOR PAIN OVER L/S SPINE. POSITIVE FOR PAIN OVER L/S PARSPINALS. DIAGNOSTIC: . 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 BRINGS IN MEDICATIONS WHICH IS APPROPRIATE FOR WHAT WAS DISPENSED. RECENT URINE TOXICOLOGY REVIEWED. NO UNAUTHORIZED MEDICATIONS. NO ILLICIT SUBSTANCES AND PRESCRIBED MEDICATIONS WERE PRESENT. , , RISKS AND BENEFITS OF NARCOTIC/OPIOD MEDICATIONS WERE REVIEWED WITH PATIENT - THIS INCLUDES BUT IS NOT LIMITED TO RISK OF DEPENDANCE/DEVELOPMENT OF ADDICTION, MOOD DISTURBANCE AND DEPRESSION, OSTEOPOROSIS, HORMONAL AND LABIDAL CHANGES, RESPIRATORY DEPRESSION AND . PATIENT IS ADVISED NOT TO DRIVE WHILE ON THESE MEDICATIONS. PROCEDURE CODES FA211 ESTABILISHED PATIENT [facility] CHARGE DISPOSITION & COMMUNICATION FOLLOW UP 20 DAYS OR A LITTLE LESS ELECTRONICALLY SIGNED BY RICCI KOLB ON 10/12/2016 AT 05:48 PM EDT DISCLAIMER : THIS IS A VISIT SUMMARY EXTRACTED FROM THE [employer] CHART. IT IS NOT A COPY OF THE [employer] PROGRESS NOTE. ARMAND
== END ==
LOC: M PAIN 10:20
PROVIDERS: ATTEND Nurse Practitioner Family
DX: M96.1 Postlaminectomy syndrome, not elsewhere classified (principal); F11.29 Opioid dependence with unspecified opioid-induced disorder; M51.86 Other intervertebral disc disorders, lumbar region; F17.210 Nicotine dependence, cigarettes, uncomplicated; Z79.891 Long term (current) use of opiate analgesic; Z79.899 Other long term (current) drug therapy

== ENCOUNTER → 2016-10-09 | Outpatient (CLI) | payer MEDICAID, OTHER ==
--- NOTE | 2016-10-22 00:42 | ECWPNPC ---
PATIENT NAME: RONY BOYLE : 1975 GENDER: FEMALE VISIT DATE: 10/09/2016 DISCHARGE DATE: 10/09/16 1201 VISIT LOCKED DATE TIME: PHYSICIAN: ALISSA VILLANUEVA RESOURCE: ALISSA VILLANUEVA REASON FOR APPOINTMENT 1. BACK AND NECK HISTORY OF PRESENT ILLNESS HISTORY OF PRESENT ILLNESS: DOING VERY WELL .HAS NOT NEEDED CLONODINE WITH LATEST REDUCTION.CURRENTLY TAKING OXYCODONE 15MG 3 IN AM ,2 MIDDAY AND TWO AT BEDTIME.DISCUSSED FURTHER REDUCING OXYCODONE TODAY AND PATIENT IS RECEPTIVE..RATING PAIN VAS 6/10. PAIN THE PATIENT DESCRIBES THE PAIN... FALL RISK SCREENING: SCREENING :NO FALLS IN THE PAST YEAR CURRENT MEDICATIONS TAKING TIZANIDINE HCL 4 MG TABLET 1 TABLET NEEDED ORALLY EVERY 6 HRS AT NIGHT FOR SPASMS AND PAIN MDD2 TAKING TYLENOL EX ST ARTHRITIS PAIN 500 MG TABLET 1 TABLET NEEDED ORALLY EVERY 6 HRS TAKING CYMBALTA 60 MG CAPSULE DELAYED RELEASE PARTICLES 1 CAPSULE ORALLY ONCE A DAY FOR PAIN TAKING CYMBALTA 30 MG CAPSULE DELAYED RELEASE PARTICLES 1 CAPSULE ORALLY IN AM DAILY TAKING CLONIDINE HCL 0.1 MG TABLET 1 TABLET AT BEDTIME ORALLY Q8H PRN, NOTES: 7 DAYS SINCE LAST DOSE TAKING OXYCODONE HCL 15 MG TABLET 3 ORALLY 3 IN AM,2 AT 12 NOON AND TWO AT 8PM MDD 8 NOT-TAKING CLONIDINE HCL 0.1 MG/24HR PATCH WEEKLY 1 PATCH TO SKIN TRANSDERMAL EVERY 7 DAYS NOT-TAKING IBUPROFEN 800 MG TABLET 1 TAB ORALLY WITH FOOD EVERY 6 HRS PRN FOR PAIN MDD3 NOT-TAKING OXYCODONE HCL 10 MG TABLET 1 TABLET NEEDED ORALLY EVERY 8 HRS MDD2 NOT-TAKING MOTRIN 800 MG TABLET ORALLY EVERY 6 HRS NOT-TAKING KETOROLAC TROMETHAMINE 10 MG TABLET 1 TABLET NEEDED ORALLY WITH FOOD EVERY 8 HRS MDD2 NOT-TAKING MOBIC 15 MG TABLET 1 TABLET ORALLY ONCE A DAY MEDICATION LIST REVIEWED AND RECONCILED WITH THE PATIENT PAST MEDICAL HISTORY DDD, LUMBAR, CHR BACK PAIN NECK PAIN 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 SOCIAL HISTORY GENERAL: TOBACCO USE ARE YOU A:CURRENT SMOKER HOW MANY CIGARETTES A DAY DO YOU SMOKE?6-10 HOW SOON AFTER YOU WAKE UP DO YOU SMOKE YOUR FIRST CIGARETTE?6-30 MIN HOW OFTEN DO YOU SMOKE CIGARETTES?EVERY DAY PATIENT COUNSELED ON THE DANGERS OF TOBACCO USE AND URGED TO QUIT:08/31/2016 ARE YOU INTERESTED IN QUITTING?THINKING ABOUT QUITTING HAS CUT BACK TO 1/2 PPD COUNSELED THE PATIENT ON SMOKING CESSATION, EDUCATION [id number]/08/2017 PROTESTANT [id number] NONE LEARNING BARRIERS / SPECIAL NEEDS ORIENTED TO PLAN OF CARE: PATIENT, PAIN MANAGEMENT PATIENT, ORIENTED TO PLAN OF CARE: PATIENT, PAIN MANAGEMENT PATIENT, ORIENTED TO PLAN OF CARE: PATIENT, PAIN MANAGEMENT PATIENT. NEW PATIENT PAIN DIARY TODAY'S VISITNOTES FROM 0-10, WHAT LEVEL IS YOUR PAIN TODAY?0 PAIN CLINIC PFS, CLERGY, PUBLIC HEALTH REFERRALS PFS REFERRAL NEEDED?NO CLERGY REFERRAL NEEDED?NO PUBLIC HEALTH REFERRAL NEEDED?NO WAS THE PROVIDER NOTIFIED OF ANY PERTINENT INFO?NO HAS THE PATIENT BEEN EDUCATED REGARDING HIS/HER PLAN OF CARE?YES HAS THE PATIENT BEEN EDUCATED REGARDING PAIN, THE RISK FOR PAIN, THE IMPORTANCE OF EFFECTIVE PAIN MANAGEMENT, AND THE PAIN ASSESSMENT PROCESS?YES REVIEW OF SYSTEMS REVIEWED BY: PROVIDER: ALISSA WYNNE . CONSTITUTIONAL: ANY CHANGE IN YOUR MEDICAL CONDITION? NO . CHILLS NO . FEVER NO . INFECTION: DO YOU HAVE NEW INFECTIONS? NO . DO YOU HAVE HISTORY OF MRSA? NO . MUSCULOSKELETAL: ANY NEW PATTERNS OF PAIN OR NUMBNESS? NO . GASTROENTEROLOGY: ANY NEW CHANGE IN BOWEL CONTROL? NO . GENITOURINARY: ANY NEW CHANGE IN BLADDER CONTROL? NO . IS THERE A CHANCE YOU COULD BE ? NO . HEMATOLOGY/LYMPH: DO YOU TAKE ANY BLOOD THINNERS? (FOR EXAMPLE- COUMADIN, PLAVIX, AGGRENOX, PLATEL, PRADAXA, OR XARELTO) NO . WHEN WAS YOUR LAST DOSE? DATE: TIME: . NEUROLOGY: HAVE YOU FALLEN IN THE PAST 6 MONTHS? YES . ANY NEW EXTREMITY NUMBNESS OR WEAKNESS? NO . CARDIOLOGY: DO YOU HAVE A PACEMAKER OR DEFIBRILLATOR? NO . RESPIRATORY: HAVE YOU BEEN SICK IN THE PAST WEEK? NO . FEVER NO . FLU LIKE SYMPTOMS? NO . COUGH NO . INTEGUMENTARY: DO YOU HAVE ANY RASHES OR OPEN SORES? NO . ALLERGIC/IMMUNO: ARE YOU ALLERGIC TO SHELLFISH OR IV DYE? NO . ANY NEW ALLERGIES? NO . PSYCHIATRIC: DO YOU HAVE THOUGHTS OF HURTING YOURSELF OR SOMEONE ELSE? NO . ARE YOU ABUSED, NEGLECTED, OR IN AN UNSAFE ENVIRONMENT? NO . ENDOCRINOLOGY: ARE YOU DIABETIC? NO . OTHER: DO YOU NEED ANY PRESCRIPTIONS? YES . IF YES, PLEASE LIST: OXYCODONE 15 MG . ANY NEW PROBLEMS WITH YOUR MEDICATIONS? NO . WHEN DID YOU LAST EAT? ____ . WHEN DID YOU LAST DRINK? ____ . WHAT DID YOU LAST DRINK? ____ . NAME OF PERSON DRIVING YOU HOME? ____ . DO YOU HAVE ANY OTHER QUESTIONS OR CONCERNS NO . VITAL SIGNS WT 220 LBS, HT 68 IN, BMI 33.45 INDEX, BP 146/95 MM HG, HR 82 /MIN, RR 16 /MIN, TEMP 98.3 F, OXYGEN SAT % 98%, NA INITIALS AW 1110, REVIEWED BY: CS. EXAMINATION GENERAL EXAMINATION: LUNGS:LUNG SOUNDS ARE CLEAR. HEART:HEART RATE REGULAR. MUSCULOSKELETAL:*. DIAGNOSTIC: . 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 IT IS NOT A COPY OF THE [employer] PROGRESS NOTE. MTDD
== END ==
LOC: M PAIN 10:20
PROVIDERS: ATTEND Nurse Practitioner Family
DX: F11.29 Opioid dependence with unspecified opioid-induced disorder (principal); M96.1 Postlaminectomy syndrome, not elsewhere classified; Z79.899 Other long term (current) drug therapy; F17.210 Nicotine dependence, cigarettes, uncomplicated; M46.1 Sacroiliitis, not elsewhere classified; M50.11 Cervical disc disorder with radiculopathy, high cervical region; M50.120 Mid-cervical disc disorder, unspecified level; M50.13 Cervical disc disorder with radiculopathy, cervicothoracic region; M79.1 Myalgia

== ENCOUNTER → 2016-10-30 | Outpatient (CLI) | payer OTHER ==
--- NOTE | 2016-11-11 03:24 | ECWPNPC ---
PATIENT NAME: RONY BOYLE : 1975 GENDER: FEMALE VISIT DATE: 10/30/2016 DISCHARGE DATE: 10/30/16 1041 VISIT LOCKED DATE TIME: PHYSICIAN: ALISSA VILLANUEVA RESOURCE: ALISSA VILLANUEVA REASON FOR APPOINTMENT 1. BACK AND NECK HISTORY OF PRESENT ILLNESS HISTORY OF PRESENT ILLNESS: DOING VERY WELL .HAS NOT NEEDED CLONODINE WITH LATEST REDUCTION.CURRENTLY TAKING OXYCODONE 15MG 3 IN AM ,2 MIDDAY AND TWO AT BEDTIME.DISCUSSED FURTHER REDUCING OXYCODONE TODAY AND PATIENT IS RECEPTIVE..RATING PAIN VAS 6/10. PAIN THE PATIENT DESCRIBES THE PAIN... THE PATIENT DESCRIBES THE PAIN... PAIN THE PATIENT DESCRIBES THE PAIN... THE PATIENT DESCRIBES THE PAIN... FALL RISK SCREENING: SCREENING :NO FALLS IN THE PAST YEAR CURRENT MEDICATIONS TAKING TIZANIDINE HCL 4 MG TABLET 1 TABLET NEEDED ORALLY EVERY 6 HRS AT NIGHT FOR SPASMS AND PAIN MDD2 TAKING TYLENOL EX ST ARTHRITIS PAIN 500 MG TABLET 1 TABLET NEEDED ORALLY EVERY 6 HRS TAKING CYMBALTA 60 MG CAPSULE DELAYED RELEASE PARTICLES 1 CAPSULE ORALLY ONCE A DAY FOR PAIN TAKING CYMBALTA 30 MG CAPSULE DELAYED RELEASE PARTICLES 1 CAPSULE ORALLY IN AM DAILY TAKING CLONIDINE HCL 0.1 MG TABLET 1 TABLET AT BEDTIME ORALLY Q8H PRN, NOTES: 7 DAYS SINCE LAST DOSE TAKING OXYCODONE HCL 15 MG TABLET 2 ORALLY TID MDD 6 NOT-TAKING CLONIDINE HCL 0.1 MG/24HR PATCH WEEKLY 1 PATCH TO SKIN TRANSDERMAL EVERY 7 DAYS NOT-TAKING IBUPROFEN 800 MG TABLET 1 TAB ORALLY WITH FOOD EVERY 6 HRS PRN FOR PAIN MDD3 NOT-TAKING OXYCODONE HCL 10 MG TABLET 1 TABLET NEEDED ORALLY EVERY 8 HRS MDD2 NOT-TAKING MOTRIN 800 MG TABLET ORALLY EVERY 6 HRS NOT-TAKING KETOROLAC TROMETHAMINE 10 MG TABLET 1 TABLET NEEDED ORALLY WITH FOOD EVERY 8 HRS MDD2 NOT-TAKING MOBIC 15 MG TABLET 1 TABLET ORALLY ONCE A DAY MEDICATION LIST REVIEWED AND RECONCILED WITH THE PATIENT PAST MEDICAL HISTORY DDD, LUMBAR, CHR BACK PAIN NECK PAIN 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 PRIOR TO CURRENT 2016 SURGURY SOCIAL HISTORY GENERAL: TOBACCO USE ARE YOU A:CURRENT SMOKER HOW MANY CIGARETTES A DAY DO YOU SMOKE?6-10 HOW SOON AFTER YOU WAKE UP DO YOU SMOKE YOUR FIRST CIGARETTE?6-30 MIN HOW OFTEN DO YOU SMOKE CIGARETTES?EVERY DAY PATIENT COUNSELED ON THE DANGERS OF TOBACCO USE AND URGED TO QUIT:08/31/2016 ARE YOU INTERESTED IN QUITTING?THINKING ABOUT QUITTING HAS CUT BACK TO 1/2 PPD COUNSELED THE PATIENT ON SMOKING CESSATION, EDUCATION [id number]/08/2017 EVANGELICAL [id number] NONE LEARNING BARRIERS / SPECIAL NEEDS ORIENTED TO PLAN OF CARE: PATIENT, PAIN MANAGEMENT PATIENT, ORIENTED TO PLAN OF CARE: PATIENT, PAIN MANAGEMENT PATIENT, ORIENTED TO PLAN OF CARE: PATIENT, PAIN MANAGEMENT PATIENT. NEW PATIENT PAIN DIARY TODAY'S VISIT NOTES, FROM 0-10, WHAT LEVEL IS YOUR PAIN TODAY? 0. PAIN CLINIC PFS, CLERGY, PUBLIC HEALTH REFERRALS PFS REFERRAL NEEDED?NO CLERGY REFERRAL NEEDED?NO PUBLIC HEALTH REFERRAL NEEDED?NO WAS THE PROVIDER NOTIFIED OF ANY PERTINENT INFO?NO HAS THE PATIENT BEEN EDUCATED REGARDING HIS/HER PLAN OF CARE?YES HAS THE PATIENT BEEN EDUCATED REGARDING PAIN, THE RISK FOR PAIN, THE IMPORTANCE OF EFFECTIVE PAIN MANAGEMENT, AND THE PAIN ASSESSMENT PROCESS?YES REVIEW OF SYSTEMS REVIEWED BY: PROVIDER: ALISSA WYNNE . CONSTITUTIONAL: ANY CHANGE IN YOUR MEDICAL CONDITION? NO . CHILLS NO . FEVER NO . INFECTION: DO YOU HAVE NEW INFECTIONS? NO . DO YOU HAVE HISTORY OF MRSA? NO . MUSCULOSKELETAL: ANY NEW PATTERNS OF PAIN OR NUMBNESS? NO . GASTROENTEROLOGY: ANY NEW CHANGE IN BOWEL CONTROL? NO . GENITOURINARY: ANY NEW CHANGE IN BLADDER CONTROL? NO . IS THERE A CHANCE YOU COULD BE ? NO . HEMATOLOGY/LYMPH: DO YOU TAKE ANY BLOOD THINNERS? (FOR EXAMPLE- COUMADIN, PLAVIX, AGGRENOX, PLATEL, PRADAXA, OR XARELTO) NO . WHEN WAS YOUR LAST DOSE? DATE: TIME: . NEUROLOGY: HAVE YOU FALLEN IN THE PAST 6 MONTHS? NO . ANY NEW EXTREMITY NUMBNESS OR WEAKNESS? NO . CARDIOLOGY: DO YOU HAVE A PACEMAKER OR DEFIBRILLATOR? NO . RESPIRATORY: HAVE YOU BEEN SICK IN THE PAST WEEK? NO . FEVER NO . FLU LIKE SYMPTOMS? NO . COUGH NO . INTEGUMENTARY: DO YOU HAVE ANY RASHES OR OPEN SORES? NO . ALLERGIC/IMMUNO: ARE YOU ALLERGIC TO SHELLFISH OR IV DYE? NO . ANY NEW ALLERGIES? NO . PSYCHIATRIC: DO YOU HAVE THOUGHTS OF HURTING YOURSELF OR SOMEONE ELSE? NO . ARE YOU ABUSED, NEGLECTED, OR IN AN UNSAFE ENVIRONMENT? NO . ENDOCRINOLOGY: ARE YOU DIABETIC? NO . OTHER: DO YOU NEED ANY PRESCRIPTIONS? NO . IF YES, PLEASE LIST: ____ . ANY NEW PROBLEMS WITH YOUR MEDICATIONS? NO . WHEN DID YOU LAST EAT? ____ . WHEN DID YOU LAST DRINK? ____ . WHAT DID YOU LAST DRINK? ____ . NAME OF PERSON DRIVING YOU HOME? ____ . DO YOU HAVE ANY OTHER QUESTIONS OR CONCERNS NO . VITAL SIGNS WT 218 LBS, HT 68 IN, BMI 33.14 INDEX, BP 131/88 MM HG, HR 74 /MIN, RR 16 /MIN, TEMP 98.4 F, OXYGEN SAT % 97%, NA INITIALS AW 1038. EXAMINATION GENERAL EXAMINATION: LUNGS:LUNG SOUNDS ARE CLEAR. HEART:HEART RATE REGULAR. MUSCULOSKELETAL:*, MUSCLE STRENGTH TESTING 5/5 BILATERAL, PALPATION: POSITIVE FOR PAIN OVER L/S SPINE. POSITIVE FOR PAIN OVER L/S PARSPINALS. DIAGNOSTIC: . 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 (PRIMARY) POSTLAMINECTOMY SYNDROME, NOT ELSEWHERE CLASSIFIED - M96.1 TREATMENT OPIOID DEPENDENCE WITH OPIOID-INDUCED DISORDER CONTINUE CLONIDINE HCL TABLET, 0.1 MG, 1 TABLET AT BEDTIME, ORALLY, Q8H PRN, 20 DAYS, 15, REFILLS 0, NOTES: 7 DAYS SINCE LAST DOSE REFILL OXYCODONE HCL TABLET, 15 MG, 2, ORALLY, 2 IN AM,2 AT 2PM,1 AT HS MDD5, 20 DAYS, 100, REFILLS 0 PROCEDURE CODES FA211 ESTABILISHED PATIENT [facility] CHARGE DISPOSITION & COMMUNICATION FOLLOW UP 15-20-DAY ELECTRONICALLY SIGNED BY RICCI KOLB ON 11/10/2016 AT 03:42 PM EDT DISCLAIMER : THIS IS A VISIT SUMMARY EXTRACTED FROM THE [employer] CHART. IT IS NOT A COPY OF THE [employer] PROGRESS NOTE. ARMAND
== END ==
LOC: M PAIN 09:40
PROVIDERS: ATTEND Nurse Practitioner Family
DX: M96.1 Postlaminectomy syndrome, not elsewhere classified (principal); F17.210 Nicotine dependence, cigarettes, uncomplicated; F11.29 Opioid dependence with unspecified opioid-induced disorder; Z79.891 Long term (current) use of opiate analgesic; Z79.899 Other long term (current) drug therapy

== ENCOUNTER → 2016-11-19 | Outpatient (CLI) | payer OTHER ==
--- NOTE | 2016-11-21 01:54 | ECWPNPC ---
PATIENT NAME: RONY BOYLE : 1975 GENDER: FEMALE VISIT DATE: 11/19/2016 DISCHARGE DATE: 11/19/16 1024 VISIT LOCKED DATE TIME: PHYSICIAN: ALISSA VILLANUEVA RESOURCE: ALISSA VILLANUEVA REASON FOR APPOINTMENT 1. BACK AND NECK HISTORY OF PRESENT ILLNESS HISTORY OF PRESENT ILLNESS: DOING VERY WELL .HAS NEEDED CLONODINE 6 TABLETS WITH LATEST REDUCTION.CURRENTLY TAKING OXYCODONE 15MG 2 IN AM ,2 MIDDAY AND ONE AT BEDTIME.DISCUSSED FURTHER REDUCING OXYCODONE TODAY AND PATIENT IS RECEPTIVE..RATING PAIN VAS 6/10. PAIN THE PATIENT DESCRIBES THE PAIN... THE PATIENT DESCRIBES THE PAIN... THE PATIENT DESCRIBES THE PAIN... FALL RISK SCREENING: SCREENING :NO FALLS IN THE PAST YEAR CURRENT MEDICATIONS TAKING TIZANIDINE HCL 4 MG TABLET 1 TABLET NEEDED ORALLY EVERY 6 HRS AT NIGHT FOR SPASMS AND PAIN MDD2 TAKING TYLENOL EX ST ARTHRITIS PAIN 500 MG TABLET 1 TABLET NEEDED ORALLY EVERY 6 HRS TAKING CYMBALTA 60 MG CAPSULE DELAYED RELEASE PARTICLES 1 CAPSULE ORALLY ONCE A DAY FOR PAIN TAKING CYMBALTA 30 MG CAPSULE DELAYED RELEASE PARTICLES 1 CAPSULE ORALLY IN AM DAILY TAKING CLONIDINE HCL 0.1 MG TABLET 1 TABLET AT BEDTIME ORALLY Q8H PRN, NOTES: 7 DAYS SINCE LAST DOSE TAKING OXYCODONE HCL 15 MG TABLET 2 ORALLY 2 IN AM,2 AT 2PM,1 AT HS MDD5 NOT-TAKING CLONIDINE HCL 0.1 MG/24HR PATCH WEEKLY 1 PATCH TO SKIN TRANSDERMAL EVERY 7 DAYS NOT-TAKING IBUPROFEN 800 MG TABLET 1 TAB ORALLY WITH FOOD EVERY 6 HRS PRN FOR PAIN MDD3 NOT-TAKING OXYCODONE HCL 10 MG TABLET 1 TABLET NEEDED ORALLY EVERY 8 HRS MDD2 NOT-TAKING MOTRIN 800 MG TABLET ORALLY EVERY 6 HRS NOT-TAKING KETOROLAC TROMETHAMINE 10 MG TABLET 1 TABLET NEEDED ORALLY WITH FOOD EVERY 8 HRS MDD2 NOT-TAKING MOBIC 15 MG TABLET 1 TABLET ORALLY ONCE A DAY MEDICATION LIST REVIEWED AND RECONCILED WITH THE PATIENT PAST MEDICAL HISTORY DDD, LUMBAR, CHR BACK PAIN NECK PAIN 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 SURGICAL HISTORY C SPINE - FUSION 2011 TOOTH EXTRACTION 2015 CHOLECYSTECTOMY 2011 APPENDECTOMY 1993 LEEP PROCEDURE 2001 TUBAL LIGATION 2000 RODS, PLATES, PINS, SCREWS TO LOWER LUMBAR BY DR RODRÍGUEZ IN [place] 2016 HOSPITALIZATION/MAJOR DIAGNOSTIC PROCEDURE C SPINE FUSION 2012 CHOLECYSTECTOMY 2012 APPENDECTOMY 1994 CHILD 1998, 1999, 2000 REVIEW OF SYSTEMS REVIEWED BY: PROVIDER: ALISSA WYNNE . CONSTITUTIONAL: ANY CHANGE IN YOUR MEDICAL CONDITION? NO . CHILLS NO . FEVER NO . INFECTION: DO YOU HAVE NEW INFECTIONS? NO . DO YOU HAVE HISTORY OF MRSA? NO . MUSCULOSKELETAL: ANY NEW PATTERNS OF PAIN OR NUMBNESS? NO . GASTROENTEROLOGY: ANY NEW CHANGE IN BOWEL CONTROL? NO . GENITOURINARY: ANY NEW CHANGE IN BLADDER CONTROL? NO . IS THERE A CHANCE YOU COULD BE ? NO . HEMATOLOGY/LYMPH: DO YOU TAKE ANY BLOOD THINNERS? (FOR EXAMPLE- COUMADIN, PLAVIX, AGGRENOX, PLATEL, PRADAXA, OR XARELTO) NO . WHEN WAS YOUR LAST DOSE? DATE: TIME: . NEUROLOGY: HAVE YOU FALLEN IN THE PAST 6 MONTHS? NO . ANY NEW EXTREMITY NUMBNESS OR WEAKNESS? NO . CARDIOLOGY: DO YOU HAVE A PACEMAKER OR DEFIBRILLATOR? NO . RESPIRATORY: HAVE YOU BEEN SICK IN THE PAST WEEK? NO . FEVER NO . FLU LIKE SYMPTOMS? NO . COUGH NO . INTEGUMENTARY: DO YOU HAVE ANY RASHES OR OPEN SORES? NO . ALLERGIC/IMMUNO: ARE YOU ALLERGIC TO SHELLFISH OR IV DYE? NO . ANY NEW ALLERGIES? NO . PSYCHIATRIC: DO YOU HAVE THOUGHTS OF HURTING YOURSELF OR SOMEONE ELSE? NO . ARE YOU ABUSED, NEGLECTED, OR IN AN UNSAFE ENVIRONMENT? NO . ENDOCRINOLOGY: ARE YOU DIABETIC? NO . OTHER: DO YOU NEED ANY PRESCRIPTIONS? YES, OXYCODONE, CYMBALTA-BOTH DOSES, CLONIDINE . IF YES, PLEASE LIST: ____ . ANY NEW PROBLEMS WITH YOUR MEDICATIONS? NO . WHEN DID YOU LAST EAT? ____ . WHEN DID YOU LAST DRINK? ____ . WHAT DID YOU LAST DRINK? ____ . NAME OF PERSON DRIVING YOU HOME? ____ . DO YOU HAVE ANY OTHER QUESTIONS OR CONCERNS NO . VITAL SIGNS WT 220 LBS, HT 68 IN, BMI 33.45 INDEX, BP 145/83 MM HG, HR 84 /MIN, RR 16 /MIN, TEMP 98.8 F, OXYGEN SAT % 100%, SAFE IN ENV? (Y/N) Y, NA INITIALS TR 1000, REVIEWED BY: EM. EXAMINATION GENERAL EXAMINATION: LUNGS:LUNG SOUNDS ARE CLEAR. HEART:HEART RATE REGULAR. MUSCULOSKELETAL:*, MUSCLE STRENGTH TESTING 5/5 BILATERAL, PALPATION: POSITIVE FOR PAIN OVER L/S SPINE. POSITIVE FOR PAIN OVER L/S PARSPINALS. DIAGNOSTIC: . 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 3-5 WEEKS ELECTRONICALLY SIGNED BY RICCI KOLB ON 11/19/2016 AT 11:25 AM EDT DISCLAIMER : THIS IS A VISIT SUMMARY EXTRACTED FROM THE [employer] CHART. IT IS NOT A COPY OF THE [employer] PROGRESS NOTE. MTDD
== END ==
LOC: M PAIN 10:00
PROVIDERS: ATTEND Nurse Practitioner Family
DX: G89.29 Other chronic pain (principal); M96.1 Postlaminectomy syndrome, not elsewhere classified; F11.29 Opioid dependence with unspecified opioid-induced disorder; Z79.891 Long term (current) use of opiate analgesic; Z79.899 Other long term (current) drug therapy

== ENCOUNTER → 2017-03-12 | Outpatient (CLI) | payer OTHER ==
--- NOTE | 2017-04-06 02:16 | ECWPNPC ---
PATIENT NAME: RONY BOYLE : 1975 GENDER: FEMALE VISIT DATE: 03/12/2017 DISCHARGE DATE: 03/12/17 1401 VISIT LOCKED DATE TIME: PHYSICIAN: ALISSA VILLANUEVA RESOURCE: ALISSA VILLANUEVA REASON FOR APPOINTMENT 1. 12-15 DAYS SQUEEZE IN HISTORY OF PRESENT ILLNESS HISTORY OF PRESENT ILLNESS: HERE FOR TWO WEEK F/U AND MEDICINE MANAGEMENT.URINE TOXICOLOGY DONE AT LAST VISIT TWO WEEKS AGO IS SHOWING POSITIVE FOR TRAMADOL IN LARGE DOSES.THIS IS NOT PRESCRIBED AND NOT SHOWING ON ISTOP.ACCOMPANIED IN EXAM ROOM WITH .SHE HAS BEEN WEANING OFF OXYCODONE 15MG OVER THE PAST 6 MONTHS.HAS MISSED APPOINTMENTS RECENTLY.DID NOT BRING MEDICATION WITH HER TODAY AND AT PREVIOUS VISIT.HAVE RECIEVED A PHONE CALL FROM A FAMILY FRIEND STATING THAT SHE WAS ASKING HER FOR PAIN MEDICATIONS.EBEN INFORMED RONY THAT I WOULD NOT BE PRESCRIBING ANY NARCOTICS ANYMORE.I WILL PROVIDE HER WITH A TEN DAY WEAN DOWN AND OFF THIS MEDICATION.I WILL PRESCRIBE #15 TABLETS OF CLONIDINE 0.1MG TABLETS FOR WITHDRAWAL.SHE STATES THAT SHE HAS BEEN IN DETOX IN THE PAST AND IM ADVISING SHE BE ADMITTED FOR DETOX AND HELP FROM PROFESSIONALS OF [facility] DISORDER. PAIN THE PATIENT DESCRIBES THE PAIN... FALL RISK SCREENING: SCREENING :NO FALLS IN THE PAST YEAR CURRENT MEDICATIONS TAKING CLONIDINE HCL 0.1 MG TABLET 1 TABLET AT BEDTIME ORALLY Q8H PRN, NOTES: 7 DAYS SINCE LAST DOSE TAKING OXYCODONE HCL 15 MG TABLET 2 ORALLY Q8H MDD3 NOT-TAKING CYMBALTA 60 MG CAPSULE DELAYED RELEASE PARTICLES 1 CAPSULE ORALLY ONCE A DAY FOR PAIN DISCONTINUED TIZANIDINE HCL 4 MG TABLET 1 TABLET NEEDED ORALLY EVERY 6 HRS AT NIGHT FOR SPASMS AND PAIN MDD2 DISCONTINUED TYLENOL EX ST ARTHRITIS PAIN 500 MG TABLET 1 TABLET NEEDED ORALLY EVERY 6 HRS DISCONTINUED CLONIDINE HCL 0.1 MG/24HR PATCH WEEKLY 1 PATCH TO SKIN TRANSDERMAL EVERY 7 DAYS, NOTES: NOT APPROVED DISCONTINUED IBUPROFEN 800 MG TABLET 1 TAB ORALLY WITH FOOD EVERY 6 HRS PRN FOR PAIN MDD3 DISCONTINUED OXYCODONE HCL 10 MG TABLET 1 TABLET NEEDED ORALLY EVERY 8 HRS MDD2 DISCONTINUED MOTRIN 800 MG TABLET ORALLY EVERY 6 HRS DISCONTINUED KETOROLAC TROMETHAMINE 10 MG TABLET 1 TABLET NEEDED ORALLY WITH FOOD EVERY 8 HRS MDD2 DISCONTINUED MOBIC 15 MG TABLET 1 TABLET ORALLY ONCE A DAY UNKNOWN CYMBALTA 30 MG CAPSULE DELAYED RELEASE PARTICLES 1 CAPSULE ORALLY IN AM DAILY MEDICATION LIST REVIEWED AND RECONCILED WITH THE PATIENT PAST MEDICAL HISTORY DDD, LUMBAR, CHR BACK PAIN NECK PAIN 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 REVIEW OF SYSTEMS REVIEWED BY: PROVIDER: ALISSA WYNNE . CONSTITUTIONAL: ANY CHANGE IN YOUR MEDICAL CONDITION? NO . CHILLS NO . FEVER NO . INFECTION: DO YOU HAVE NEW INFECTIONS? NO . DO YOU HAVE HISTORY OF MRSA? NO . MUSCULOSKELETAL: ANY NEW PATTERNS OF PAIN OR NUMBNESS? NO . GASTROENTEROLOGY: ANY NEW CHANGE IN BOWEL CONTROL? NO . GENITOURINARY: ANY NEW CHANGE IN BLADDER CONTROL? NO . IS THERE A CHANCE YOU COULD BE ? NO . HEMATOLOGY/LYMPH: DO YOU TAKE ANY BLOOD THINNERS? (FOR EXAMPLE- COUMADIN, PLAVIX, AGGRENOX, PLATEL, PRADAXA, OR XARELTO) NO . WHEN WAS YOUR LAST DOSE? DATE: TIME: . NEUROLOGY: HAVE YOU FALLEN IN THE PAST 6 MONTHS? NO . ANY NEW EXTREMITY NUMBNESS OR WEAKNESS? NO . CARDIOLOGY: DO YOU HAVE A PACEMAKER OR DEFIBRILLATOR? NO . RESPIRATORY: HAVE YOU BEEN SICK IN THE PAST WEEK? NO . FEVER NO . FLU LIKE SYMPTOMS? NO . COUGH NO . INTEGUMENTARY: DO YOU HAVE ANY RASHES OR OPEN SORES? NO . ALLERGIC/IMMUNO: ARE YOU ALLERGIC TO SHELLFISH OR IV DYE? NO . ANY NEW ALLERGIES? NO . PSYCHIATRIC: DO YOU HAVE THOUGHTS OF HURTING YOURSELF OR SOMEONE ELSE? NO . ARE YOU ABUSED, NEGLECTED, OR IN AN UNSAFE ENVIRONMENT? NO . ENDOCRINOLOGY: ARE YOU DIABETIC? NO . OTHER: DO YOU NEED ANY PRESCRIPTIONS? YES . IF YES, PLEASE LIST: ____CLONIDINE,OXYCODONE 15MG . ANY NEW PROBLEMS WITH YOUR MEDICATIONS? NO . WHEN DID YOU LAST EAT? ____ . WHEN DID YOU LAST DRINK? ____ . WHAT DID YOU LAST DRINK? ____ . NAME OF PERSON DRIVING YOU HOME? ____ . DO YOU HAVE ANY OTHER QUESTIONS OR CONCERNS NO . VITAL SIGNS WT 221.0 LBS, HT 68 IN, BMI 33.60 INDEX, BP 135/88 MM HG, HR 90 /MIN, RR 16 /MIN, TEMP 99.1 F, OXYGEN SAT % 97%, SAFE IN ENV? (Y/N) YES, NA INITIALS TL 1317, REVIEWED BY: KAREEN. EXAMINATION GENERAL EXAMINATION: GENERAL APPEARANCE:ALERT/ORIENTED. PSYCHWEEPY. 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 RECENT URINE TOXICOLOGY REVIEWED. SHOWING HIGH DOSES OF TRAMADOL THAT IS NOT PRESCRIBED. NO ILLICIT SUBSTANCES AND PRESCRIBED MEDICATIONS WERE PRESENT. DECREASE AND DISCONTINUE OXYCODONE 15MG.TAKE 1 TAB 3X DAY X 3DAYS,THEN 1 TAB 2X PER DAY X3 DAYS THEN 1 TAB DAILY X3 DAYS THEN STOP.USE CLONIDINE 0.1MG ONE TAB EVERY 8H NEEDED FOR WITHDRAWAL MAX 3 PER DAY X10 DAYS. PATIENT AND STATE THEY HAVE 6 TABLETS AT [facility] TO ER WITH ANY WITHDRAWAL SYMPTOMS.ADVISING IN PATIENT REHAB STAY.PHONE NUMBER TO [facility] WAS OFFERED BUT PATIENT STATES SHE KNOWS NUMBERS TO CALL SHE HAS BEEN INPATIENT REHAB. A FEW YEARS AGO. PROCEDURE CODES FA211 ESTABILISHED PATIENT [facility] CHARGE DISPOSITION & COMMUNICATION FOLLOW UP 3 MONTHS ELECTRONICALLY SIGNED BY RICCI KOLB ON 04/05/2017 AT 12:47 PM EST DISCLAIMER : THIS IS A VISIT SUMMARY EXTRACTED FROM THE [employer] CHART. IT IS NOT A COPY OF THE [employer] [facility]INICAL[employer]oe [employer] PROGRESS NOTE. ARMAND
== END ==
LOC: M PAIN 13:00
PROVIDERS: ATTEND Nurse Practitioner Family
DX: F11.29 Opioid dependence with unspecified opioid-induced disorder (principal); Z79.899 Other long term (current) drug therapy

== ENCOUNTER 2017-07-12 22:35 | Emergency (ER) | payer OTHER ==
[2017-07-13] MEDS: traMADol 50 MG TAB PO (02:24)
== END 2017-07-13 03:33 | disposition home or self-care (01) ==
LOC: M ED 22:35
DX: F11.29 Opioid dependence with unspecified opioid-induced disorder (principal); M54.2 Cervicalgia; G89.29 Other chronic pain; F17.200 Nicotine dependence, unspecified, uncomplicated; Z79.899 Other long term (current) drug therapy
CPT/HCPCS: 99283

== ENCOUNTER → 2018-07-28 | Outpatient (CLI) | payer OTHER ==
--- NOTE | 2018-07-28 09:10 | REP ---
However quadrant sonography: History: Hepatomegaly. Comparison CT study March 02, 2015. Comparison sonography September 12, 2011. Findings: The liver span in the midclavicular line measures 17.0 cm. The liver measured 16.4 cm in vertical span on sagittal reformatted CT images from February 2015. No focal liver lesion is seen. The gallbladder surgically absent. The common bile duct is normal post cholecystectomy measuring 0.8 cm. Limited views of the pancreas show no abnormality. There is no evidence of ascites or significant right renal abnormality. The right kidney measures 11.9 x 5.7 x 3.6 cm. Impression: Minimally enlarged liver. No focal lesion. Post cholecystectomy. Otherwise negative right upper quadrant sonography. Electronically Signed by Aaron Landon MD 07/28/2018 09:01 A
== END ==
LOC: M RAD 07:57
PROVIDERS: ATTEND Physician Assistant Medical
DX: R16.0 Hepatomegaly, not elsewhere classified (principal)

== ENCOUNTER 2018-08-13 18:23 | Emergency (ER) | payer OTHER ==
[~2018-08-13] VITALS: Ht 172.7 cm; Wt 105.8 kg
[2018-08-13 18:24] VITALS: BP 148/79
[2018-08-13] MEDS ORDERED: ADACEL/BOOSTRIX VACCINE (DIPHTH/PERTUSS/ACELL/TETANUS)0.5ML SYR (90715) IM ONE (19:00)
== END 2018-08-13 19:09 | disposition home or self-care (01) ==
LOC: M ED 18:23
DX: S61.212A Laceration without foreign body of right middle finger without damage to nail, initial encounter (principal); Y92.009 Unspecified place in unspecified non-institutional (private) residence as the place of occurrence of the external cause; W26.8XXA Contact with other sharp object(s), not elsewhere classified, initial encounter; Y99.9 Unspecified external cause status; Y93.9 Activity, unspecified; F17.210 Nicotine dependence, cigarettes, uncomplicated; Z79.899 Other long term (current) drug therapy

== ENCOUNTER → 2018-09-23 | Outpatient (CLI) | payer OTHER ==
--- NOTE | 2018-09-23 13:39 | REP ---
BILATERAL MAMMOGRAM WITH 3D TOMOSYNTHESIS Baseline study, family history of breast cancer in maternal aunt and three paternal aunts. [facility] lifetime risk of breast cancer 24.4%. There is mild to moderate fibroglandular tissue scattered bilaterally. No mass is seen bilaterally. No mass is seen bilaterally. Tiny calcifications are seen laterally in the right breast on the CC view, possibly at the level of the nipple on the MLO view of the right breast. Otherwise, no suspicious clusters of microcalcifications are seen bilaterally. IMPRESSION: BIRADS 0: BI-RADS/ACR category 0 mammogram, Incomplete: Need additional imaging evaluation and/or prior mammograms for comparison. Possible tiny microcalcifications outer right breast for which magnifications views are recommended. Also given the patient's lifetime risk of breast cancer 24.4%, I would recommend supplemental MRI of the breasts. This mammogram was interpreted with the aid of an FDA-approved computer-aided detection system. The patient states that she or he has not had a clinical breast exam in over a year. Patient letter M0.
== END ==
LOC: M WHC 10:24
PROVIDERS: ATTEND Physician Assistant Medical
DX: Z12.31 Encounter for screening mammogram for malignant neoplasm of breast (principal); R92.8 Other abnormal and inconclusive findings on diagnostic imaging of breast

== ENCOUNTER → 2018-09-23 | Outpatient (REF) | payer OTHER | LOC: M SFHCWAGY 11:40 | PROVIDERS: ATTEND Family Medicine | DX: Z12.4 Encounter for screening for malignant neoplasm of cervix (principal) ==

== ENCOUNTER → 2018-10-11 | Outpatient (CLI) | payer OTHER ==
--- NOTE | 2018-10-11 10:54 | REP ---
DIAGNOSTIC MAMMOGRAM RIGHT BREAST: Multiple magnification views right breast performed and correlated with the recent baseline mammogram of 09/23/2018. These magnification views confirm the presence of clustered pleomorphic microcalcifications in the outer right breast. Stereotactic biopsy is recommended. IMPRESSION: BIRADS 4: BI-RADS/ACR category 4 mammogram. Suspicious Abnormality - biopsy should be considered. Multiple clustered pleomorphic microcalcifications outer right breast. Stereotactic biopsy is recommended. Patient letter M4. Electronically Signed by Edgar Delgado MD 10/11/2018 04:30 P
== END ==
LOC: M RAD 10:09
PROVIDERS: ATTEND Physician Assistant Medical
DX: N63.10 Unspecified lump in the right breast, unspecified quadrant (principal)

== ENCOUNTER → 2018-10-13 | Outpatient (REF) | payer OTHER ==
[2018-10-13 13:32] LABS: BASO % 0.5 % (0.0-1.0); EOS # 0.2 10^3/uL (0.0-0.50); HEMATOCRIT 42.9 % (36.0-47.0); LYMPH # 3.2 10^3/uL (1.5-4.5); LYMPH % 42.2 % (24.0-44.0); MEAN CORPUSCULAR HEMOGLOBIN 31.5 pg (27.0-33.0); MEAN CORPUSCULAR HGB CONC 32.6 g/dl (32.0-36.5); MEAN CORPUSCULAR VOLUME 96.4 fl (80.0-96.0); MONO # 0.5 10^3/uL (0.0-0.8); MONO % 6.6 % (0.0-5.0); NEUTROPHILS # 3.7 10^3/uL (1.8-7.7); NEUTROPHILS % 48.6 % (36.0-66.0); PLATELET COUNT, AUTOMATED 334 10^3/uL (150-450); RED BLOOD COUNT 4.45 10^6/uL (4.00-5.40); WHITE BLOOD COUNT 7.5 10^3/uL (4.0-10.0)
[2018-10-13 13:57] LABS: ALBUMIN 3.5 GM/DL (3.2-5.2); ALT/SGPT 22 U/L (12-78); BILIRUBIN,TOTAL 0.4 MG/DL (0.2-1.0); BLOOD UREA NITROGEN 13 MG/DL (7-18); CALCIUM LEVEL 8.9 MG/DL (8.5-10.1); CARBON DIOXIDE LEVEL 30 MEQ/L (21-32); CHLORIDE LEVEL 107 MEQ/L (98-107); CHOLESTEROL LEVEL 188 MG/DL (<200); CHOLESTEROL RISK RATIO 3.916 (<5); FREE T4 0.88 NG/DL (0.76-1.46); GLOMERULAR FILTRATION RATE > 60.0 (>58); GLUCOSE, FASTING 80 MG/DL (70-100); HDL CHOLESTEROL 48 MG/DL (>40); LDL CHOLESTEROL 114 MG/DL (<100); NON-HDL-C 140 MG/DL; POTASSIUM SERUM 4.2 MEQ/L (3.5-5.1); SODIUM LEVEL 141 MEQ/L (136-145); TOTAL 25(OH) VITAMIN D 12.7 NG/ML (30.0-100.0); TOTAL PROTEIN 6.3 GM/DL (6.4-8.2); TRIGLYCERIDES LEVEL 131 MG/DL (<150)
== END ==
LOC: M SFHCADAM 10:11
PROVIDERS: ATTEND Physician Assistant Medical
DX: F33.2 Major depressive disorder, recurrent severe without psychotic features (principal); F17.210 Nicotine dependence, cigarettes, uncomplicated; E66.01 Morbid (severe) obesity due to excess calories; R16.0 Hepatomegaly, not elsewhere classified; G89.4 Chronic pain syndrome